=== PATIENT | female | born 1990 | race Native Hawaiian/Other Pacific Islander ===

== ENCOUNTER 2020-11-16 13:21 | Emergency (ER) | payer OTHER, SELFPAY ==
[2020-11-16 13:32] VITALS: BP 101/74; PULSE 103; RESP 20; TEMP 36.3; O2SAT 99
--- NOTE | 2020-11-16 13:47 | ED.ALLEREA ---
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 Reports 3 day history of generalized itchy hives. She denies any known trigger. She reports taking Benadryl twice yesterday. Reports each time prior to taking Benadryl she felt slight throat stricture which improved with Benadryl. She denies swollen lips, swollen tongue, wheezing, difficulty breathing. Denies diarrhea, nausea, fever. MD complaint: allergic reaction Related Data Allergies Allergy/AdvReac Type Severity Reaction Status Date / Time otc cold meds AdvReac Unknown Uncoded 11/16/20 13:50 Review of Systems Review of Systems: CONSTITUTIONAL: Denies malaise, chills, sweats, or fever. EYES: Denies visual changes, redness, or discharge. ENT: Denies rhinorrhea, congestion, sinus pain, otalgia or sore throat, swollen lips, swollen tongue CARDIOVASCULAR: Denies chest pain, palpitations, or edema. RESPIRATORY: Denies cough or dyspnea. GASTROINTESTINAL: Denies abdominal pain, nausea, vomiting, diarrhea SKIN: Reports generalized itchy hives MUSCULOSKELETAL: Denies myalgia. All systems reviewed & are unremarkable except as noted in HPI and below PMFSH Comments At time of signature, agree with nursing past medical, surgical, social and family history. There is no relevant family history pertinent to the presenting complaint Exam Narrative: GENERAL: Well-appearing, well-nourished, and in no acute distress. HEAD: Normocephalic, atraumatic. EYES: PERRLA, conjunctivae clear ENT: Mucous membranes moist. Oropharynx without edema, erythema or lesions. NECK: Supple. No lymphadenopathy CHEST: Clear to auscultation. No respiratory distress. HEART: Regular rate and rhythm. SKIN: Warm, dry. Urticarial rash noted to bilateral arms and legs, excluding face NEURO: Alert and oriented x3. PSYCH: Normal mood and affect Course Course Emergency Course: Patient is aware of diagnosis, understands and agrees to treatment plan. Anticipatory guidance given. Patient agrees to follow-up as directed and is aware of reasons to seek care at the emergency department. Portions of this record may have been created with voice recognition software Vital Signs Vital signs: Vital Signs Temperature 97.4 F L 11/16/20 13:32 Pulse Rate 103 H 11/16/20 13:32 Respiratory Rate 20 11/16/20 13:32 Blood Pressure 101/74 11/16/20 13:32 Pulse Oximetry 99 11/16/20 13:32 Temperature 97.4 F L 11/16/20 13:32 Pulse Rate 103 H 11/16/20 13:32 Respiratory Rate 20 11/16/20 13:32 Blood Pressure 101/74 11/16/20 13:32 Pulse Oximetry 99 11/16/20 13:32 Reviewed. MDM - Allergic Reaction MDM Narrative Medical decision making narrative: Does not appear at this time to be erythema multiforme, bullous, SJS, TEN; no evidence at this time to suggest RMSF, endocarditis or Lyme disease; patient looks well, nontoxic and is tolerating oral intake; no neurologic signs or symptoms; no headache, photophobia or neck pain; afebrile; appropriate for initial outpatient treatment; discussed the importance of follow-up, patient agrees; question, viral exanthema, contact dermatitis, allergic dermatitis, eczema, urticaria, [ xx ]. No soft palate or uvula edema, no tongue, lip edema or other mucosal involvement, no respiratory compromise, no stridor, no wheezing, no wheezing, no history of syncope, no hypotension, no nausea, vomiting, or diarrhea. Instructed patient to go to nearest ER immediately for any worsening symptoms including but not limited to: fever, spreading rash, pain, sore throat, headache, dizziness, chest pain, trouble breathing, or any symptoms concerning to the patient. Critical Care Time Criti
[2020-11-16] MEDS: methylPREDNISolone SOD SUCC 125 MG VIAL IM (14:05)
== END 2020-11-16 14:30 | disposition home or self-care (01) ==
PROVIDERS: Emergency Provider Nurse Practitioner
DX: L50.9 Urticaria, unspecified (principal)
CPT/HCPCS: 96372; 99213; G0463; J2930